=== PATIENT | male | born 1970 | race Caucasian/White ===

== ENCOUNTER 2020-12-04 14:51 | Emergency (ER) | payer BC, OTHER ==
[~2020-12-04] VITALS: Ht 193 cm; Wt 133.1 kg
[2020-12-04] MEDS ORDERED: NORV5TAB PO (15:07)
[2020-12-04] MEDS ORDERED: VALS320T3 PO (15:07)
--- NOTE | 2020-12-04 17:53 | REP ---
INDICATION: left calf pain COMPARISON: None. TECHNIQUE: Real time compression and duplex Doppler interrogation of the left lower extremity deep venous system is performed, including the right common femoral vein.Compression of the left peroneal and posterior tibial veins is performed. FINDINGS: The left common femoral, superficial femoral and popliteal veins are fully compressible with transducer pressure and demonstrate normal spontaneous and phasic flow, without evidence of deep venous thrombosis.The right common femoral vein demonstrates no thrombus.The visualized left peroneal and posterior tibial veins demonstrate no thrombus. A left popliteal cyst measures 2.9 x 0.6 x 1.0 cm. Occluded superficial venous varicosities are seen in the mid to distal medial left calf soft tissues. IMPRESSION: No evidence of deep venous thrombosis of the left lower extremity femoral popliteal venous system.No thrombus in the visualized left peroneal and posterior tibial veins. A left popliteal cyst measures 2.9 x 0.6 x 1.0 cm. Occluded superficial venous varicosities are seen in the mid to distal medial left calf soft tissues. <Electronically signed by Krish Jimenez > 12/04/20 4591
[2020-12-04 20:04] VITALS: BP 164/88
[2020-12-04] MEDS ORDERED: IBUP80TA PO (20:14)
== END 2020-12-04 20:55 | disposition home or self-care (01) ==
LOC: M ED 14:51
DX: I80.02 Phlebitis and thrombophlebitis of superficial vessels of left lower extremity (principal); I10 Essential (primary) hypertension; Z79.899 Other long term (current) drug therapy

== ENCOUNTER 2023-10-25 08:42 | Day surgery (SDC) | payer BC ==
[~2023-10-25] VITALS: Ht 193 cm; Wt 144.4 kg
[~2023-10-25 08:42] MED LIST: AMLO1TAB25 PO; IBUP80TA PO; NEBI10TA2 PO; NORV5TAB PO; PRIL20TA2 PO; SILD100T PO; VALS320T3 PO
[2023-10-25] MEDS ORDERED: LIDOCAINE 2% 100MG/5ML SDV (FOR ANES.) As Ordered ONE (09:06)
[2023-10-25] MEDS ORDERED: propofoL 200 MG/20 ML VIAL As Ordered ONE (09:06)
[2023-10-25] MEDS: NS 1,000 ML IV ONE (09:11)
[2023-10-25 10:42] VITALS: TEMP 98.3
[2023-10-25 10:58] VITALS: BP 123/67; O2SAT 95
== END 2023-10-25 11:11 | disposition home or self-care (01) ==
LOC: M OPP 08:42
PROVIDERS: ATTEND Surgery
DX: Z12.11 Encounter for screening for malignant neoplasm of colon (principal); D12.6 Benign neoplasm of colon, unspecified; K63.5 Polyp of colon; K64.2 Third degree hemorrhoids; K64.4 Residual hemorrhoidal skin tags; Z87.891 Personal history of nicotine dependence; I48.91 Unspecified atrial fibrillation; Z79.1 Long term (current) use of non-steroidal anti-inflammatories (NSAID); Z79.899 Other long term (current) drug therapy